=== PATIENT | male | born 1955 | race Caucasian/White ===

== ENCOUNTER 2016-12-23 09:31 | Inpatient (IN) | payer OTHER ==
[~2016-12-23] VITALS: Ht 182.9 cm; Wt 112.7 kg
[~2016-12-23 09:31] MED LIST: ANORO ELLIPTA1 EACH IH; APRESOLINE25 MG PO; ASPIR 8181 M1 PO; ASPIRIN325 MG PO; CATAPRES0.2 MG PO; CLONIDINE HCL0.1 MG PO; CLONIDINE HCL0.2 MG PO; COMBIVENT RESPIM4 GM IH; CYMBALTA20 MG PO; CYMBALTA30 MG PO; DULOXETINE HCL30 MG PO; ENALAPRIL MALEA20 MG PO; FUROSEMIDE40 MG PO; HYDROCODON-ACE1 EAC7 PO; INCRUSE ELLI62.5 MCG IH; ISOSORBIDE DINI20 MG PO; KLOR-CON 1010 ME1 PO; LABETALOL HCL200 MG PO; LIPITOR40 MG PO; NICOTINE PATCH1 EAC2 TD; PANTOPRAZOLE SO40 MG PO; PLAVIX75 MG PO; PREDNISONE10 M1 PO; PROAIR HFA8.5 GM IH; SYMBICORT60 INHALAT IH; TAMSULOSIN HCL0.4 MG PO; WELLBUTRIN SR150 MG PO; ZOCOR40 MG PO
[2016-12-23 10:28] LABS: BASE EXCESS -2.9 mEq/L (-3 to +3); BICARBONATE 21.1 mEq/L (22-26); CARBOXY HGB 1.8 % (0-5); METHEMOGLOBIN 0.9 % (0-1.5); PCO2 34 mm Hg (35-45)
[2016-12-23 10:29] LABS: COMMENTS - BLOOD GASES A+C+; DEVICE NRBM; O2 FLOW 15 L/MIN; PO2 408 mm Hg (80-100); SITE LR
[2016-12-23 10:58] LABS: EOSINOPHIL (%) 2.2 % (0-5); EOSINOPHIL COUNT 0.3 K/uL (0-0.3); HEMATOCRIT 44.3 % (38.0-50.0); IMMATURE GRANULOCYTE (%) 0.3 % (0.0-0.7); IMMATURE GRANULOCYTE COUNT 0.4 K/uL; LYMPHOCYTE COUNT 2.8 K/uL (1.0-2.8); MCH 27.8 PG (29.0-34.0); MCHC 34.1 G/DL (30.0-36.0); MCV 81.4 FL (86-99); MEAN PLAT.VOLUME 10.6 uM^3 (9.0-12.4); MONOCYTE COUNT 0.9 K/uL (0-0.8); NEUTROPHIL (%) 67.6 % (45-76); NEUTROPHIL COUNT 8.4 K/uL (1.8-6.4); PLATELET COUNT 219 K/uL (156-360); RBC DIS.WIDTH-CV 14.2 % (11.8-14.6); RBC DIS.WIDTH-SD 41.1 % (39-53); RED BLOOD COUNT 5.44 M/uL (4.00-5.50); WHITE BLOOD COUNT 12.5 K/uL (4.1-10.2)
[2016-12-23 11:09] LABS: CHLORIDE 105 mEq/L (99-109); POTASSIUM 4.2 mEq/L (3.7-5.4); SODIUM 141 mEq/L (136-147)
[2016-12-23 11:11] LABS: D-DIMER ELISA 0.71 mg/L FEU (< 0.57); GLUCOSE 152 mg/dL (70-99)
[2016-12-23 11:12] LABS: ANION GAP 18 MEQ/L (2-14)
[2016-12-23 11:13] LABS: TOTAL BILIRUBIN 0.8 mg/dL (0.0-1.0)
[2016-12-23 11:14] LABS: ALKALINE PHOSPHATASE 89 IU/L (3-129)
[2016-12-23 11:15] LABS: GFR ESTIMATE (CALCULATED) 20 mL/min/
[2016-12-23 11:16] LABS: UREA NITROGEN (BUN) 40 mg/dL (9-23)
[2016-12-23 11:18] LABS: CREATINE KINASE 67 IU/L (1-294)
[2016-12-23 11:26] LABS: TROP-I INTERPRETATION NEGATIVE; TROPONIN-I 0.03 ng/mL (0.0-0.30)
[2016-12-23 17:19] LABS: TROP-I INTERPRETATION NEGATIVE; TROPONIN-I 0.02 ng/mL (0.0-0.30)
[2016-12-23 18:53] VITALS: BP 131/67
[2016-12-23 19:07] VITALS: BP 131/67
[2016-12-23 23:39] VITALS: BP 165/79
[2016-12-23 23:46] LABS: TROP-I INTERPRETATION NEGATIVE; TROPONIN-I 0.02 ng/mL (0.0-0.30)
[2016-12-24 03:18] VITALS: BP 166/91
[2016-12-24 07:01] LABS: HEMATOCRIT 40.8 % (38.0-50.0); MCH 27.8 PG (29.0-34.0); MCHC 33.6 G/DL (30.0-36.0); MCV 82.8 FL (86-99); MEAN PLAT.VOLUME 10.7 uM^3 (9.0-12.4); PLATELET COUNT 158 K/uL (156-360); RBC DIS.WIDTH-CV 13.9 % (11.8-14.6); RBC DIS.WIDTH-SD 41.7 % (39-53); RED BLOOD COUNT 4.93 M/uL (4.00-5.50)
[2016-12-24 07:02] LABS: WHITE BLOOD COUNT 8.2 K/uL (4.1-10.2)
[2016-12-24 07:07] LABS: ANION GAP 12 MEQ/L (2-14); CHLORIDE 107 MEQ/L (99-109); POTASSIUM 4.1 MEQ/L (3.7-5.4); SAMPLE HEMOLYSIS CHECK 0; SAMPLE ICTERIC CHECK 0; SAMPLE LIPEMIA CHECK 0; SODIUM 141 MEQ/L (136-147)
[2016-12-24 07:12] LABS: GFR ESTIMATE (CALCULATED) 31 mL/min/; GLUCOSE 117 mg/dL (70-99); UREA NITROGEN (BUN) 35 mg/dL (9-23)
[2016-12-24 09:00] VITALS: BP 189/108
[2016-12-24 09:50] LABS: HDL CHOLESTEROL 27 MG/DL (Desirable>=40); LDL CHOLESTEROL 58 mg/dL (Desirable<100); NON-HDL CHOLESTEROL 117 mg/dL (Desirable<160); TOTAL CHOLESTEROL 144 mg/dL (Desirable<200); TRIGLYCERIDES 294 MG/DL (Normal: <150)
[2016-12-24 10:18] LABS: Estimated Average Glucose 157 mg/dL (70-123); HEMOGLOBIN A1c (GLYCOHEMOGLOB) 7.1 % HGB (Below 5.7)
[2016-12-24 11:27] VITALS: BP 194/107
[2016-12-24 16:00] VITALS: BP 192/114
[2016-12-24 20:24] VITALS: BP 213/109
[2016-12-24 23:00] VITALS: BP 202/104; BP 204/108
[2016-12-25] VITALS (7 sets, daily range): BP systolic 147–227; BP diastolic 96–116
[2016-12-25 07:47] LABS: EOSINOPHIL (%) 2.1 % (0-5); EOSINOPHIL COUNT 0.2 K/uL (0-0.3); HEMATOCRIT 41.6 % (38.0-50.0); IMMATURE GRANULOCYTE (%) 0.4 % (0.0-0.7); MCH 27.8 PG (29.0-34.0); MCHC 34.4 G/DL (30.0-36.0); MCV 80.8 FL (86-99); MEAN PLAT.VOLUME 9.9 uM^3 (9.0-12.4); MONOCYTE (%) 8.6 % (3-12); MONOCYTE COUNT 0.7 K/uL (0-0.8); NEUTROPHIL (%) 65.3 % (45-76); NEUTROPHIL COUNT 5.5 K/uL (1.8-6.4); PLATELET COUNT 150 K/uL (156-360); RBC DIS.WIDTH-CV 13.7 % (11.8-14.6); RBC DIS.WIDTH-SD 40.2 % (39-53); RED BLOOD COUNT 5.15 M/uL (4.00-5.50); WHITE BLOOD COUNT 8.5 K/uL (4.1-10.2)
[2016-12-25 08:18] LABS: ANION GAP 12 MEQ/L (2-14); CHLORIDE 103 MEQ/L (99-109); GFR ESTIMATE (CALCULATED) 44 mL/min/; GLUCOSE 130 mg/dL (70-99); MAGNESIUM 2.1 mg/dl (1.3-2.7); POTASSIUM 3.9 MEQ/L (3.7-5.4); SAMPLE HEMOLYSIS CHECK 0; SAMPLE ICTERIC CHECK 0; SAMPLE LIPEMIA CHECK 0; SODIUM 137 MEQ/L (136-147); UREA NITROGEN (BUN) 23 mg/dL (9-23); URIC ACID 7.3 mg/dL (3.1-9.2)
[2016-12-25 21:07] LABS: UR CREATININE CONCENTRATION 77.9 MG/DL
[2016-12-26 04:00] VITALS: BP 138/94
[2016-12-26 07:02] LABS: HEMATOCRIT 45.8 % (38.0-50.0); MCHC 34.9 G/DL (30.0-36.0); MCV 80.2 FL (86-99); MEAN PLAT.VOLUME 10.2 uM^3 (9.0-12.4); PLATELET COUNT 167 K/uL (156-360); RBC DIS.WIDTH-CV 13.8 % (11.8-14.6); RBC DIS.WIDTH-SD 39.3 % (39-53); RED BLOOD COUNT 5.71 M/uL (4.00-5.50); WHITE BLOOD COUNT 8.6 K/uL (4.1-10.2)
[2016-12-26 07:24] LABS: ANION GAP 11 MEQ/L (2-14); CHLORIDE 99 MEQ/L (99-109); GFR ESTIMATE (CALCULATED) 47 mL/min/; GLUCOSE 144 mg/dL (70-99); MAGNESIUM 2.1 mg/dl (1.3-2.7); POTASSIUM 3.8 MEQ/L (3.7-5.4); SAMPLE HEMOLYSIS CHECK 0; SAMPLE ICTERIC CHECK 0; SAMPLE LIPEMIA CHECK 0; SODIUM 133 MEQ/L (136-147); UREA NITROGEN (BUN) 16 mg/dL (9-23)
[2016-12-26 08:30] VITALS: BP 180/101
[2016-12-26 10:02] VITALS: BP 172/104
[2016-12-26] MEDS ORDERED: CLOPIDOGREL75 MG PO (11:07)
[2016-12-26] MEDS ORDERED: ATORVASTATIN CA40 MG PO (11:07)
[2016-12-26] MEDS ORDERED: Procardia XL,Adalat PO (11:07)
[2016-12-26] MEDS ORDERED: ASPIRIN EC325 MG PO (11:07)
[2016-12-26] MEDS ORDERED: SPIRIVA RESPIMAT4 GM IH (11:07)
[2016-12-26] MEDS ORDERED: LABETALOL HCL200 MG PO (11:07)
== END 2016-12-26 11:59 | disposition home or self-care (01) | DRG 65 ==
LOC: EME → EDBD 09:31 → 4EAST 15:37 → EDOF 15:37 → 4EAST 18:57
PROVIDERS: Emergency Medicine; Internal Medicine; Internal Medicine Nephrology
DX: I63.9 Cerebral infarction, unspecified (principal); I13.0 Hypertensive heart and chronic kidney disease with heart failure and stage 1 through stage 4 chronic kidney disease, or unspecified chronic kidney disease; N18.3 Chronic kidney disease, stage 3 (moderate); I50.32 Chronic diastolic (congestive) heart failure; J44.9 Chronic obstructive pulmonary disease, unspecified; I69.354 Hemiplegia and hemiparesis following cerebral infarction affecting left non-dominant side; N17.9 Acute kidney failure, unspecified; I25.10 Atherosclerotic heart disease of native coronary artery without angina pectoris; E87.2 Acidosis; F17.210 Nicotine dependence, cigarettes, uncomplicated; I95.9 Hypotension, unspecified; Z91.81 History of falling; R47.81 Slurred speech; E66.9 Obesity, unspecified; G47.30 Sleep apnea, unspecified; E86.0 Dehydration; I34.0 Nonrheumatic mitral (valve) insufficiency; Z68.33 Body mass index [BMI] 33.0-33.9, adult
CPT/HCPCS: 36600; 70450; 70551; 71010; 76770; 78582; 80048; 80053; 80061; 82375 90; 82550; 82570; 82803; 83036; 83605; 83735; 83880; 83935; 84100; 84156; 84295; 84484; 84550; 85025; 85027; 85379; 93005; 93306; 93880; 94640; 94640 76; 94760; 99202; 99281; 99284; A9540; A9567; C8923; J0360; J0461; J1644; J7030; J7070

== ENCOUNTER 2016-12-28 12:10 | Inpatient (IN) | payer OTHER ==
[2016-12-28] VITALS (17 sets, daily range): BP systolic 40–146; BP diastolic 31–108
[~2016-12-28] VITALS: Ht 172.7 cm; Wt 97.4 kg
[~2016-12-28 12:10] MED LIST changes: +ASPIRIN EC325 MG PO; +ATORVASTATIN CA40 MG PO; +CLOPIDOGREL75 MG PO; +Procardia XL,Adalat PO; +SPIRIVA RESPIMAT4 GM IH
[2016-12-28 12:54] LABS: CHLORIDE 107 mEq/L (99-109); POTASSIUM 4.2 mEq/L (3.7-5.4); SODIUM 138 mEq/L (136-147)
[2016-12-28 12:55] LABS: GLUCOSE 140 mg/dL (70-99); HEMATOCRIT 42.5 % (38.0-50.0); MCH 27.7 PG (29.0-34.0); MCHC 34.6 G/DL (30.0-36.0); MEAN PLAT.VOLUME 10.2 uM^3 (9.0-12.4); PLATELET COUNT 204 K/uL (156-360); RBC DIS.WIDTH-CV 14.1 % (11.8-14.6); RBC DIS.WIDTH-SD 40.7 % (39-53); RED BLOOD COUNT 5.31 M/uL (4.00-5.50); WHITE BLOOD COUNT 13.5 K/uL (4.1-10.2)
[2016-12-28 12:57] LABS: ANION GAP 16 MEQ/L (2-14)
[2016-12-28 13:03] LABS: TROP-I INTERPRETATION NEGATIVE; TROPONIN-I 0.04 ng/mL (0.0-0.30)
[2016-12-28 13:07] LABS: GFR ESTIMATE (CALCULATED) 15 mL/min/; UREA NITROGEN (BUN) 45 mg/dL (9-23)
[2016-12-28 15:53] LABS: BILIRUBIN NEGATIVE; BLOOD NEGATIVE; COLOR YELLOW ((YELLOW)); GLUCOSE (STRIP) NEGATIVE; KETONES NEGATIVE; LEUKOCYTES NEGATIVE; NITRITE NEGATIVE; PH, URINE 5.5 (5-8); PROTEIN (STRIP) NEGATIVE; SPECIFIC GRAVITY 1.019 (1.000-1.030); UROBILINOGEN 0.2 MG/DL (0.2-1.0)
[2016-12-28 15:54] LABS: ADD MIUA? NO; UCUL ADDED? NO
[2016-12-28 19:15] LABS: TROP-I INTERPRETATION NEGATIVE; TROPONIN-I 0.02 ng/mL (0.0-0.30)
[2016-12-29 03:15] VITALS: BP 157/90
[2016-12-29 07:00] VITALS: BP 174/107
[2016-12-29 07:30] LABS: ANION GAP 8 MEQ/L (2-14); CHLORIDE 108 MEQ/L (99-109); GLUCOSE 119 mg/dL (70-99); SAMPLE HEMOLYSIS CHECK 0; SAMPLE ICTERIC CHECK 0; SAMPLE LIPEMIA CHECK 0; SODIUM 138 MEQ/L (136-147); UREA NITROGEN (BUN) 41 mg/dL (9-23)
[2016-12-29 07:31] LABS: GFR ESTIMATE (CALCULATED) 28 mL/min/
[2016-12-29 07:35] LABS: HEMATOCRIT 38.4 % (38.0-50.0); MCHC 33.6 G/DL (30.0-36.0); MCV 83.3 FL (86-99); MEAN PLAT.VOLUME 10.4 uM^3 (9.0-12.4); PLATELET COUNT 147 K/uL (156-360); RBC DIS.WIDTH-CV 14.1 % (11.8-14.6); RBC DIS.WIDTH-SD 42.4 % (39-53); RED BLOOD COUNT 4.61 M/uL (4.00-5.50)
[2016-12-29 07:38] LABS: WHITE BLOOD COUNT 8.9 K/uL (4.1-10.2)
[2016-12-29 11:05] VITALS: BP 193/119
[2016-12-29 15:00] VITALS: BP 161/100
[2016-12-29 19:10] VITALS: BP 168/93
[2016-12-29 21:29] LABS: POINT-OF-CARE METER ID UU13113698
[2016-12-29 23:10] VITALS: BP 159/94
[2016-12-30 03:00] VITALS: BP 128/71
[2016-12-30 06:51] LABS: EOSINOPHIL (%) 2.9 % (0-5); EOSINOPHIL COUNT 0.2 K/uL (0-0.3); HEMATOCRIT 38.2 % (38.0-50.0); IMMATURE GRANULOCYTE (%) 0.2 % (0.0-0.7); LYMPHOCYTE COUNT 1.7 K/uL (1.0-2.8); MCH 27.8 PG (29.0-34.0); MCHC 33.5 G/DL (30.0-36.0); MEAN PLAT.VOLUME 10.5 uM^3 (9.0-12.4); MONOCYTE (%) 8.1 % (3-12); MONOCYTE COUNT 0.7 K/uL (0-0.8); NEUTROPHIL (%) 67.5 % (45-76); NEUTROPHIL COUNT 5.5 K/uL (1.8-6.4); PLATELET COUNT 157 K/uL (156-360); RBC DIS.WIDTH-SD 42.1 % (39-53); WHITE BLOOD COUNT 8.2 K/uL (4.1-10.2)
[2016-12-30 07:24] LABS: ANION GAP 10 MEQ/L (2-14); CHLORIDE 109 MEQ/L (99-109); GFR ESTIMATE (CALCULATED) 39 mL/min/; GLUCOSE 94 mg/dL (70-99); SAMPLE HEMOLYSIS CHECK 0; SAMPLE ICTERIC CHECK 0; SAMPLE LIPEMIA CHECK 0; SODIUM 140 MEQ/L (136-147); UREA NITROGEN (BUN) 30 mg/dL (9-23)
[2016-12-30 07:32] LABS: POINT-OF-CARE METER ID UU14174216
[2016-12-30 08:22] VITALS: BP 158/86
[2016-12-30 11:25] LABS: POINT-OF-CARE METER ID UU14174216
[2016-12-30] MEDS ORDERED: GABAPENTIN100 MG PO (13:59)
[2016-12-30] MEDS ORDERED: NIFEDIPINE ER30 MG PO (13:59)
== END 2016-12-30 15:11 | disposition home or self-care (01) | DRG 682 ==
LOC: EME → EDBD 12:10 → 4EAST 15:13 → EDOF 15:13 → 4EAST 20:59
PROVIDERS: Emergency Medicine; Internal Medicine; Internal Medicine Nephrology
DX: N17.9 Acute kidney failure, unspecified (principal); G93.41 Metabolic encephalopathy; I50.32 Chronic diastolic (congestive) heart failure; I13.0 Hypertensive heart and chronic kidney disease with heart failure and stage 1 through stage 4 chronic kidney disease, or unspecified chronic kidney disease; N18.3 Chronic kidney disease, stage 3 (moderate); E11.22 Type 2 diabetes mellitus with diabetic chronic kidney disease; E87.2 Acidosis; I95.9 Hypotension, unspecified; Z86.73 Personal history of transient ischemic attack (TIA), and cerebral infarction without residual deficits; Z09 Encounter for follow-up examination after completed treatment for conditions other than malignant neoplasm; D72.829 Elevated white blood cell count, unspecified; I25.10 Atherosclerotic heart disease of native coronary artery without angina pectoris; I25.2 Old myocardial infarction; N40.1 Benign prostatic hyperplasia with lower urinary tract symptoms; J44.9 Chronic obstructive pulmonary disease, unspecified; R33.8 Other retention of urine; E86.0 Dehydration; G47.30 Sleep apnea, unspecified; Z99.81 Dependence on supplemental oxygen; F17.210 Nicotine dependence, cigarettes, uncomplicated; E78.5 Hyperlipidemia, unspecified; E66.9 Obesity, unspecified; Z98.61 Coronary angioplasty status
CPT/HCPCS: 70450; 70551; 71010; 76770; 80048; 81003; 82948; 83605; 84484; 85025; 85027; 87040; 93005; 99202; 99281; 99285; J1644; J1815; J7030

== ENCOUNTER → 2017-01-27 | Outpatient (CLI) | payer OTHER ==
[~2017-01-27] MED LIST changes: +CEFTIN500 MG PO; +CLONAZEPAM0.5 MG PO; +DOXYCYCLINE HY100 MG PO; +GABAPENTIN100 MG PO; +GLIMEPIRIDE2 MG PO; +LITE COAT ASPI325 M1 PO; +NIFEDIPINE ER30 MG PO; +OSELTAMIVIR PHO30 MG PO; +PREDNISONE10 MG PO; +PROTONIX40 MG PO; +TRAMADOL HCL50 MG PO; +VITAMIN D-32000 UNI2 PO
== END | disposition home or self-care (01) ==
DX: I69.391 Dysphagia following cerebral infarction (principal)
CPT/HCPCS: 92611 GN

== ENCOUNTER 2017-02-11 12:36 | Inpatient (IN) | payer OTHER ==
[~2017-02-11] VITALS: Ht 172.7 cm; Wt 110.1 kg
[~2017-02-11 12:36] MED LIST changes: -CEFTIN500 MG PO; -CLONAZEPAM0.5 MG PO; -DOXYCYCLINE HY100 MG PO; -GLIMEPIRIDE2 MG PO; -LITE COAT ASPI325 M1 PO; -OSELTAMIVIR PHO30 MG PO; -PREDNISONE10 MG PO; -PROTONIX40 MG PO; -TRAMADOL HCL50 MG PO; -VITAMIN D-32000 UNI2 PO
[2017-02-11 13:22] LABS: EOSINOPHIL (%) 1.1 % (0-5); EOSINOPHIL COUNT 0.1 K/uL (0-0.3); HEMATOCRIT 41.8 % (38.0-50.0); IMMATURE GRANULOCYTE (%) 0.8 % (0.0-0.7); IMMATURE GRANULOCYTE COUNT 0.1 K/uL; INSTRUMENT ABS NEUTROPHIL CT 4.2 K/uL; LYMPHOCYTE COUNT 1.3 K/uL (1.0-2.8); MCH 27.1 PG (29.0-34.0); MCHC 32.3 G/DL (30.0-36.0); MCV 83.8 FL (86-99); MEAN PLAT.VOLUME 9.8 uM^3 (9.0-12.4); MONOCYTE (%) 13.3 % (3-12); MONOCYTE COUNT 0.9 K/uL (0-0.8); NEUTROPHIL (%) 64.7 % (45-76); NEUTROPHIL COUNT 4.2 K/uL (1.8-6.4); PLATELET COUNT 185 K/uL (156-360); RBC DIS.WIDTH-CV 13.8 % (11.8-14.6); RBC DIS.WIDTH-SD 42.2 % (39-53); RED BLOOD COUNT 4.99 M/uL (4.00-5.50); WHITE BLOOD COUNT 6.5 K/uL (4.1-10.2)
[2017-02-11 13:34] LABS: CHLORIDE 105 mEq/L (99-109); POTASSIUM 3.9 mEq/L (3.7-5.4); SODIUM 139 mEq/L (136-147)
[2017-02-11 13:36] LABS: GLUCOSE 93 mg/dL (70-99)
[2017-02-11 13:38] LABS: ANION GAP 12 MEQ/L (2-14); TOTAL BILIRUBIN 0.7 mg/dL (0.0-1.0)
[2017-02-11 13:40] LABS: ALKALINE PHOSPHATASE 83 IU/L (3-129); GFR ESTIMATE (CALCULATED) 24 mL/min/
[2017-02-11 13:41] LABS: UREA NITROGEN (BUN) 29 mg/dL (9-23)
[2017-02-11 13:47] LABS: TROP-I INTERPRETATION NEGATIVE; TROPONIN-I 0.03 ng/mL (0.0-0.30)
[2017-02-11 15:45] LABS: INFLUENZA A VIRAL ANTIGEN NEGATIVE; INFLUENZA B VIRAL ANTIGEN POSITIVE
[2017-02-11] MEDS ORDERED: LABETALOL HCL200 MG PO (16:35)
[2017-02-11] MEDS ORDERED: CLOPIDOGREL75 MG PO (16:36)
[2017-02-11] MEDS ORDERED: NIFEDIPINE ER30 MG PO (16:36)
[2017-02-11] MEDS ORDERED: CLONIDINE HCL0.2 MG PO (16:36)
[2017-02-11] MEDS ORDERED: ATORVASTATIN CA40 MG PO (16:36)
[2017-02-11] MEDS ORDERED: LITE COAT ASPI325 M1 PO (16:36)
[2017-02-11] MEDS ORDERED: GABAPENTIN100 MG PO (16:37)
[2017-02-11] MEDS ORDERED: GLIMEPIRIDE2 MG PO (16:37)
[2017-02-11] MEDS ORDERED: WELLBUTRIN SR150 MG PO (16:37)
[2017-02-11] MEDS ORDERED: SYMBICORT60 INHALAT IH (16:37)
[2017-02-11] MEDS ORDERED: TAMSULOSIN HCL0.4 MG PO (16:37)
[2017-02-11] MEDS ORDERED: PROTONIX40 MG PO (16:37)
[2017-02-11] MEDS ORDERED: COMBIVENT RESPIM4 GM IH (16:38)
[2017-02-11] MEDS ORDERED: INCRUSE ELLI62.5 MCG IH (16:38)
[2017-02-11] MEDS ORDERED: PROAIR HFA8.5 GM IH (16:38)
[2017-02-11] MEDS ORDERED: CLONAZEPAM0.5 MG PO (16:38)
[2017-02-11] MEDS ORDERED: TRAMADOL HCL50 MG PO (16:38)
[2017-02-11] MEDS ORDERED: VITAMIN D-32000 UNI2 PO (16:39)
[2017-02-11 18:48] LABS: TROP-I INTERPRETATION NEGATIVE; TROPONIN-I 0.02 ng/mL (0.0-0.30)
[2017-02-11 19:50] VITALS: BP 131/86
[2017-02-12] VITALS: BP 163/70
[2017-02-12 01:29] LABS: HEMATOCRIT 37.4 % (38.0-50.0); MCH 27.5 PG (29.0-34.0); MCHC 32.9 G/DL (30.0-36.0); MCV 83.5 FL (86-99); MEAN PLAT.VOLUME 10.3 uM^3 (9.0-12.4); PLATELET COUNT 156 K/uL (156-360); RBC DIS.WIDTH-CV 13.6 % (11.8-14.6); RBC DIS.WIDTH-SD 41.5 % (39-53); RED BLOOD COUNT 4.48 M/uL (4.00-5.50); WHITE BLOOD COUNT 5.7 K/uL (4.1-10.2)
[2017-02-12 01:42] LABS: CHLORIDE 105 mEq/L (99-109); SODIUM 137 mEq/L (136-147)
[2017-02-12 01:44] LABS: GLUCOSE 128 mg/dL (70-99)
[2017-02-12 01:46] LABS: ANION GAP 11 MEQ/L (2-14)
[2017-02-12 01:48] LABS: GFR ESTIMATE (CALCULATED) 28 mL/min/
[2017-02-12 01:49] LABS: UREA NITROGEN (BUN) 33 mg/dL (9-23)
[2017-02-12 01:57] LABS: TROP-I INTERPRETATION NEGATIVE; TROPONIN-I 0.03 ng/mL (0.0-0.30)
[2017-02-12 04:00] VITALS: BP 138/82
[2017-02-12 08:02] VITALS: BP 145/90
[2017-02-12 11:19] VITALS: BP 140/90
[2017-02-12 15:29] VITALS: BP 142/86
[2017-02-12 16:59] LABS: POINT-OF-CARE METER ID UU14174225
[2017-02-12 17:44] LABS: POINT-OF-CARE METER ID UU14174225
[2017-02-12 19:38] VITALS: BP 160/83
[2017-02-13] VITALS: BP 169/95
[2017-02-13 03:32] VITALS: BP 165/97
[2017-02-13 07:33] LABS: POINT-OF-CARE METER ID UU14174225
[2017-02-13 07:50] VITALS: BP 140/67
[2017-02-13 10:17] LABS: MCH 27.2 PG (29.0-34.0); MCV 82.2 FL (86-99); MEAN PLAT.VOLUME 10.6 uM^3 (9.0-12.4); PLATELET COUNT 177 K/uL (156-360); RBC DIS.WIDTH-CV 13.4 % (11.8-14.6); RBC DIS.WIDTH-SD 39.9 % (39-53); RED BLOOD COUNT 5.23 M/uL (4.00-5.50); WHITE BLOOD COUNT 6.5 K/uL (4.1-10.2)
[2017-02-13 10:39] LABS: ANION GAP 14 MEQ/L (2-14); CHLORIDE 103 MEQ/L (99-109); POTASSIUM 4.4 MEQ/L (3.7-5.4); SAMPLE HEMOLYSIS CHECK 0; SAMPLE ICTERIC CHECK 0; SAMPLE LIPEMIA CHECK 0; SODIUM 137 MEQ/L (136-147); UREA NITROGEN (BUN) 28 mg/dL (9-23)
[2017-02-13 10:46] LABS: GFR ESTIMATE (CALCULATED) 47 mL/min/; GLUCOSE 240 mg/dL (70-99)
[2017-02-13 11:24] VITALS: BP 136/93
[2017-02-13 15:22] VITALS: BP 116/70
[2017-02-13 17:11] LABS: POINT-OF-CARE METER ID UU14174225
[2017-02-13 19:27] VITALS: BP 120/76
[2017-02-14 00:15] VITALS: BP 123/71
[2017-02-14 04:00] VITALS: BP 121/74
[2017-02-14 07:02] LABS: ANION GAP 11 MEQ/L (2-14); CHLORIDE 102 MEQ/L (99-109); GFR ESTIMATE (CALCULATED) 44 mL/min/; GLUCOSE 145 mg/dL (70-99); POTASSIUM 4.6 MEQ/L (3.7-5.4); SAMPLE HEMOLYSIS CHECK 0; SAMPLE ICTERIC CHECK 0; SAMPLE LIPEMIA CHECK 0; SODIUM 137 MEQ/L (136-147); UREA NITROGEN (BUN) 35 mg/dL (9-23)
[2017-02-14 07:36] LABS: EOSINOPHIL (%) 0 % (0-5); HEMATOCRIT 41.7 % (38.0-50.0); IMMATURE GRANULOCYTE (%) 0.9 % (0.0-0.7); IMMATURE GRANULOCYTE COUNT 0.1 K/uL; LYMPHOCYTE COUNT 1.3 K/uL (1.0-2.8); MCH 27.2 PG (29.0-34.0); MCHC 32.9 G/DL (30.0-36.0); MCV 82.7 FL (86-99); MEAN PLAT.VOLUME 10.4 uM^3 (9.0-12.4); MONOCYTE (%) 4.7 % (3-12); MONOCYTE COUNT 0.6 K/uL (0-0.8); NEUTROPHIL (%) 83.7 % (45-76); PLATELET COUNT 203 K/uL (156-360); RBC DIS.WIDTH-CV 13.5 % (11.8-14.6); RBC DIS.WIDTH-SD 40.4 % (39-53); RED BLOOD COUNT 5.04 M/uL (4.00-5.50)
[2017-02-14 07:51] VITALS: BP 125/63
[2017-02-14] MEDS ORDERED: DOXYCYCLINE HY100 MG PO (11:27)
[2017-02-14] MEDS ORDERED: PREDNISONE10 MG PO (11:27)
[2017-02-14] MEDS ORDERED: OSELTAMIVIR PHO30 MG PO (11:27)
[2017-02-14] MEDS ORDERED: CEFTIN500 MG PO (11:27)
[2017-02-14 12:40] VITALS: BP 126/66
== END 2017-02-14 15:36 | disposition home health service (06) | DRG 189 ==
LOC: EME → EDBD 12:36 → EDOF 17:43 → 5SOUTH 17:43
PROVIDERS: Emergency Medicine; Family Medicine; Hospitalist
DX: J96.01 Acute respiratory failure with hypoxia (principal); J44.0 Chronic obstructive pulmonary disease with (acute) lower respiratory infection; J10.1 Influenza due to other identified influenza virus with other respiratory manifestations; J44.1 Chronic obstructive pulmonary disease with (acute) exacerbation; I13.0 Hypertensive heart and chronic kidney disease with heart failure and stage 1 through stage 4 chronic kidney disease, or unspecified chronic kidney disease; N17.9 Acute kidney failure, unspecified; I50.30 Unspecified diastolic (congestive) heart failure; N18.3 Chronic kidney disease, stage 3 (moderate); E11.22 Type 2 diabetes mellitus with diabetic chronic kidney disease; I25.10 Atherosclerotic heart disease of native coronary artery without angina pectoris; I25.2 Old myocardial infarction; I34.0 Nonrheumatic mitral (valve) insufficiency; E66.9 Obesity, unspecified; Z68.36 Body mass index [BMI] 36.0-36.9, adult; E78.5 Hyperlipidemia, unspecified; N40.0 Benign prostatic hyperplasia without lower urinary tract symptoms; K21.9 Gastro-esophageal reflux disease without esophagitis; F32.9 Major depressive disorder, single episode, unspecified; G89.29 Other chronic pain; M54.5 Low back pain; F17.200 Nicotine dependence, unspecified, uncomplicated; Z86.73 Personal history of transient ischemic attack (TIA), and cerebral infarction without residual deficits; Z86.718 Personal history of other venous thrombosis and embolism; Z79.84 Long term (current) use of oral hypoglycemic drugs; Z79.02 Long term (current) use of antithrombotics/antiplatelets; Z79.82 Long term (current) use of aspirin
CPT/HCPCS: 70450; 71020; 71250; 80048; 80053; 81003; 82948; 83605; 83880; 84484; 85025; 85027; 87040; 87502; 93005; 94640; 94640 76; 99202; 99281; 99285; J0696; J1650; J2920; J7030; J7050; J7644

== ENCOUNTER 2017-07-14 19:53 | Emergency (ER) | payer OTHER ==
[~2017-07-14] VITALS: Ht 172.7 cm; Wt 112.0 kg
[~2017-07-14 19:53] MED LIST changes: +CEFTIN500 MG PO; +CLONAZEPAM0.5 MG PO; +DOXYCYCLINE HY100 MG PO; +GLIMEPIRIDE2 MG PO; +LITE COAT ASPI325 M1 PO; +OSELTAMIVIR PHO30 MG PO; +PREDNISONE10 MG PO; +PROTONIX40 MG PO; +TRAMADOL HCL50 MG PO; +VITAMIN D-32000 UNI2 PO
[2017-07-14 22:30] LABS: HEMATOCRIT 46.3 % (38.0-50.0); MCHC 33.7 G/DL (30.0-36.0); MCV 80.2 FL (86-99); MEAN PLAT.VOLUME 9.4 uM^3 (9.0-12.4); PLATELET COUNT 222 K/uL (156-360); RBC DIS.WIDTH-CV 12.9 % (11.8-14.6); RED BLOOD COUNT 5.77 M/uL (4.00-5.50); WHITE BLOOD COUNT 10.3 K/uL (4.1-10.2)
[2017-07-14 22:40] LABS: CHLORIDE 106 mEq/L (99-109); POTASSIUM 3.6 mEq/L (3.7-5.4); SODIUM 140 mEq/L (136-147)
[2017-07-14 22:41] LABS: GLUCOSE 129 mg/dL (70-99)
[2017-07-14 22:43] LABS: ANION GAP 13 MEQ/L (2-14)
[2017-07-14 22:45] LABS: GFR ESTIMATE (CALCULATED) 44 mL/min/
[2017-07-14 22:46] LABS: UREA NITROGEN (BUN) 19 mg/dL (9-23)
[2017-07-15] MEDS ORDERED: FLEXERIL10 MG PO (00:09)
[2017-07-15] MEDS ORDERED: NAPROSYN500 MG PO (00:09)
[2017-07-15 00:24] VITALS: BP 168/91
== END 2017-07-15 00:25 | disposition home or self-care (01) ==
LOC: EME 19:53
PROVIDERS: Emergency Medicine
DX: M79.604 Pain in right leg (principal); M54.9 Dorsalgia, unspecified; Z79.02 Long term (current) use of antithrombotics/antiplatelets; J44.9 Chronic obstructive pulmonary disease, unspecified; E11.9 Type 2 diabetes mellitus without complications; I25.2 Old myocardial infarction; K21.9 Gastro-esophageal reflux disease without esophagitis; E78.5 Hyperlipidemia, unspecified; Z86.73 Personal history of transient ischemic attack (TIA), and cerebral infarction without residual deficits; F17.200 Nicotine dependence, unspecified, uncomplicated
CPT/HCPCS: 80048; 85027; 93971; 99281; 99284

== ENCOUNTER 2017-08-22 11:53 | Inpatient (IN) | payer OTHER ==
[~2017-08-22] VITALS: Ht 172.7 cm; Wt 110.6 kg
[~2017-08-22 11:53] MED LIST changes: +FLEXERIL10 MG PO; +NAPROSYN500 MG PO
[2017-08-22 12:56] LABS: EOSINOPHIL (%) 1.9 % (0-5); EOSINOPHIL COUNT 0.2 K/uL (0-0.3); HEMATOCRIT 47.2 % (38.0-50.0); IMMATURE GRANULOCYTE (%) 0.4 % (0.0-0.7); INSTRUMENT ABS NEUTROPHIL CT 6.8 K/uL; LYMPHOCYTE COUNT 2.4 K/uL (1.0-2.8); MCHC 33.7 G/DL (30.0-36.0); MCV 80.1 FL (86-99); MEAN PLAT.VOLUME 9.9 uM^3 (9.0-12.4); MONOCYTE (%) 6.7 % (3-12); MONOCYTE COUNT 0.7 K/uL (0-0.8); NEUTROPHIL (%) 67.1 % (45-76); NEUTROPHIL COUNT 6.8 K/uL (1.8-6.4); PLATELET COUNT 223 K/uL (156-360); RBC DIS.WIDTH-CV 13.1 % (11.8-14.6); RBC DIS.WIDTH-SD 37.2 % (39-53); RED BLOOD COUNT 5.89 M/uL (4.00-5.50); WHITE BLOOD COUNT 10.1 K/uL (4.1-10.2)
[2017-08-22 13:06] LABS: CHLORIDE 105 mEq/L (99-109); POTASSIUM 4.2 mEq/L (3.7-5.4); SODIUM 138 mEq/L (136-147)
[2017-08-22 13:08] LABS: GLUCOSE 147 mg/dL (70-99)
[2017-08-22 13:09] LABS: ANION GAP 10 MEQ/L (2-14)
[2017-08-22 13:11] LABS: SERUM ETHYL ALCOHOL < 10 mg/dL
[2017-08-22 13:12] LABS: GFR ESTIMATE (CALCULATED) 38 mL/min/; UREA NITROGEN (BUN) 25 mg/dL (9-23)
[2017-08-22 13:20] LABS: TROP-I INTERPRETATION NEGATIVE; TROPONIN-I 0.02 ng/mL (0.0-0.30)
[2017-08-22] MEDS ORDERED: LO-DOSE ASPIRIN81 M2 PO (18:36)
[2017-08-22] MEDS ORDERED: RANITIDINE HCL300 M1 PO (18:39)
[2017-08-22] MEDS ORDERED: BENAZEPRIL HCL10 MG PO (18:39)
[2017-08-22 18:51] LABS: Estimated Average Glucose 140 mg/dL (70-123); HEMOGLOBIN A1c (GLYCOHEMOGLOB) 6.5 % HGB (Below 5.7)
[2017-08-22 19:35] VITALS: BP 124/77
[2017-08-22 21:34] LABS: POINT-OF-CARE METER ID UU14188625
[2017-08-22 23:26] VITALS: BP 133/68
[2017-08-22 23:32] LABS: CREATINE KINASE 333 IU/L (1-294); TOTAL CK 333 IU/L (1-294)
[2017-08-22 23:41] LABS: CK-MB 2.9 ng/mL (0.0-4.9)
[2017-08-23] VITALS (8 sets, daily range): BP systolic 131–246; BP diastolic 77–139
[2017-08-23 06:09] LABS: HEMATOCRIT 44.5 % (38.0-50.0); MCH 26.9 PG (29.0-34.0); MCHC 32.6 G/DL (30.0-36.0); MCV 82.6 FL (86-99); MEAN PLAT.VOLUME 9.7 uM^3 (9.0-12.4); PLATELET COUNT 182 K/uL (156-360); RBC DIS.WIDTH-CV 13.2 % (11.8-14.6); RBC DIS.WIDTH-SD 39.3 % (39-53); RED BLOOD COUNT 5.39 M/uL (4.00-5.50); WHITE BLOOD COUNT 9.7 K/uL (4.1-10.2)
[2017-08-23 06:28] LABS: INTER. NORMALIZED RATIO 1.1; PROTHROMBIN TIME 12.1 SEC (10.2-12.9)
[2017-08-23 06:32] LABS: ALKALINE PHOSPHATASE 64 IU/L (3-129); ANION GAP 8 MEQ/L (2-14); CHLORIDE 106 MEQ/L (99-109); GFR ESTIMATE (CALCULATED) 38 mL/min/; GLUCOSE 129 mg/dL (70-99); HDL CHOLESTEROL 27 MG/DL (Desirable>=40); LDL CHOLESTEROL 75 mg/dL (Desirable<100); NON-HDL CHOLESTEROL 130 mg/dL (Desirable<160); POTASSIUM 4.1 MEQ/L (3.7-5.4); SAMPLE HEMOLYSIS CHECK 0; SAMPLE ICTERIC CHECK 0; SAMPLE LIPEMIA CHECK 0; SODIUM 141 MEQ/L (136-147); TOTAL BILIRUBIN 0.5 MG/DL (0.0-1.0); TOTAL CHOLESTEROL 157 mg/dL (Desirable<200); TRIGLYCERIDES 274 MG/DL (Normal: <150); UREA NITROGEN (BUN) 29 mg/dL (9-23)
[2017-08-23 12:20] LABS: POINT-OF-CARE METER ID UU13113717
[2017-08-23 17:35] LABS: POINT-OF-CARE METER ID UU13113717
[2017-08-23 21:37] LABS: POINT-OF-CARE METER ID UU14188625
[2017-08-24] VITALS (7 sets, daily range): BP systolic 125–195; BP diastolic 71–114
[2017-08-24] MEDS ORDERED: NICOTINE PATCH1 EAC2 TD (07:39)
[2017-08-24 12:01] LABS: POINT-OF-CARE METER ID UU13113717
[2017-08-24 17:01] LABS: POINT-OF-CARE METER ID UU13113717
[2017-08-24 21:09] LABS: POINT-OF-CARE METER ID UU14188625
[2017-08-25 03:34] VITALS: BP 122/78
[2017-08-25 07:42] LABS: POINT-OF-CARE METER ID UU13113717
[2017-08-25 07:43] VITALS: BP 138/74
== END 2017-08-25 12:20 | disposition home or self-care (01) | DRG 89 ==
LOC: EME 11:53 → EDOF 14:50 → 5SOUTH 14:50 → ENRESERV 14:53 → 5SOUTH 19:23
PROVIDERS: Emergency Medicine; Hospitalist; Specialist
DX: S06.0X9A Concussion with loss of consciousness of unspecified duration, initial encounter (principal); I69.354 Hemiplegia and hemiparesis following cerebral infarction affecting left non-dominant side; W19.XXXA Unspecified fall, initial encounter; R53.1 Weakness; J44.9 Chronic obstructive pulmonary disease, unspecified; I25.10 Atherosclerotic heart disease of native coronary artery without angina pectoris; I50.9 Heart failure, unspecified; I13.0 Hypertensive heart and chronic kidney disease with heart failure and stage 1 through stage 4 chronic kidney disease, or unspecified chronic kidney disease; N18.3 Chronic kidney disease, stage 3 (moderate); R47.81 Slurred speech; E11.22 Type 2 diabetes mellitus with diabetic chronic kidney disease; E78.5 Hyperlipidemia, unspecified; F17.200 Nicotine dependence, unspecified, uncomplicated; M48.04 Spinal stenosis, thoracic region; E66.9 Obesity, unspecified; K21.9 Gastro-esophageal reflux disease without esophagitis; I25.2 Old myocardial infarction; Z79.899 Other long term (current) drug therapy; Z68.37 Body mass index [BMI] 37.0-37.9, adult; Z79.82 Long term (current) use of aspirin; Z86.73 Personal history of transient ischemic attack (TIA), and cerebral infarction without residual deficits; R26.9 Unspecified abnormalities of gait and mobility
CPT/HCPCS: 70450; 70551; 71010; 72146; 72148; 80048; 80053; 80061; 80306 90; 81003; 82550; 82550 91; 82553; 82948; 83036; 84484; 85025; 85027; 85610; 85651; 92610 GN; 93005; 94640; 94640 76; 94660; 94799; 97530 GO; 99202; 99281; 99284; G0480; J1815; J7030